=== PATIENT | male | born 1950 | race Caucasian/White ===

== ENCOUNTER 2019-08-17 13:46 | Emergency (ER) | payer MEDICARE ==
[~2019-08-17] VITALS: Ht 175.3 cm; Wt 85.0 kg
[2019-08-17 13:47] VITALS: BP 167/64
--- NOTE | 2019-08-17 13:59 | NUR ---
PT WITH HX OF ASTHMA, PT FOUND TO BE AT 80% ON RA. 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 PT NOW SATING 95% ON RA, PT STATES HE FEELS MUCH BETTER. PT DENIES COUGH AND FEVERS
[2019-08-17] MEDS ORDERED: SODIUM CHLORIDE FLUSH 10ML SYR IVF ONE (14:00)
[2019-08-17 14:13] LABS: BASOPHILS # (AUTO) 0.02 x10^3/uL (0-0.1); BASOPHILS % (AUTO) 0 % (0-1); EOSINOPHILS # (AUTO) 0.05 x10^3/uL (0-0.4); EOSINOPHILS % (AUTO) 1 % (1-7); LYMPHOCYTES # (AUTO) 1.29 x10^3/uL (1-3.4); LYMPHOCYTES % (AUTO) 14 % (22-44); MD NO; MEAN CORPUSCULAR HEMOGLOBIN 31.4 pg (27.5-34.5); MEAN CORPUSCULAR VOLUME 94.9 fL (81-97); MEAN PLATELET VOLUME 8.4 fL (7.4-10.4); MONOCYTES # (AUTO) 0.85 x10^3/uL (0.2-0.8); MONOCYTES % (AUTO) 9 % (2-9); NEUTROPHILS # (AUTO) 6.92 x10^3/uL (1.8-6.8); NEUTROPHILS % (AUTO) 76 % (42-75); PLATELET COUNT 200 x10^3/uL (130-400); RED BLOOD COUNT 4.45 x10^6/uL (4.38-5.82); RED CELL DISTRIBUTION WIDTH 13.4 % (9.4-14.8)
[2019-08-17 14:24] LABS: ALBUMIN 3.5 g/dL (3.4-5.0); ANION GAP 7 mmol/L (5-15); CALCIUM 9.4 mg/dL (8.5-10.1); CHLORIDE 106 mmol/L (98-107)
[2019-08-17 14:29] LABS: CREATININE 1.04 mg/dL (0.7-1.3); TROPONIN I < 0.015 ng/mL (0.000-0.045)
--- NOTE | 2019-08-17 15:17 | NUR ---
TASK RN: PT REPORTS IMPROVED S/S SINCE TX. DC EDUCATION PROVIDED, PT DEMONSTRATES UNDERSTANDING. PT AMBULATED STEADILY TO DC WITH RN
== END 2019-08-17 15:19 | disposition home or self-care (01) ==
LOC: ED 14:33
DX: J45.41 Moderate persistent asthma with (acute) exacerbation (principal)
CPT/HCPCS: 36415; 71045; 80048; 82040; 83605; 84145; 84484; 85025; 99284

== ENCOUNTER 2019-12-25 19:56 | Emergency (ER) | payer MEDICARE ==
[~2019-12-25] VITALS: Ht 175.3 cm; Wt 86.3 kg
[2019-12-25] MEDS ORDERED: METO25TA35 PO (20:27)
[2019-12-25] MEDS ORDERED: BUDE10.22 INH (20:27)
[2019-12-25] MEDS ORDERED: EZET1TAB65 PO (20:27)
[2019-12-25] MEDS ORDERED: ASPI-496 PO (20:27)
[2019-12-25] MEDS ORDERED: ALBUTEROL INH (20:27)
[2019-12-25] MEDS ORDERED: LISI-167 PO (20:27)
--- NOTE | 2019-12-25 20:27 | NUR ---
PA AT BEDSIDE TO ASSESS
[2019-12-25] MEDS ORDERED: ALBUTEROL/IPRATROPIUM 2.5MG/0.5MG, 3 ML NPPB ONE (20:30)
[2019-12-25] MEDS ORDERED: ALBUTEROL/IPRATROPIUM 2.5MG/0.5MG, 3 ML ONE (20:32)
[2019-12-25 20:54] LABS: BASOPHILS # (AUTO) 0.05 x10^3/uL (0-0.1); BASOPHILS % (AUTO) 1 % (0-1); EOSINOPHILS # (AUTO) 0.32 x10^3/uL (0-0.4); EOSINOPHILS % (AUTO) 7 % (1-7); LYMPHOCYTES # (AUTO) 1.02 x10^3/uL (1-3.4); LYMPHOCYTES % (AUTO) 20 % (22-44); MD NO; MEAN CORPUSCULAR HEMOGLOBIN 31.1 pg (27.5-34.5); MEAN CORPUSCULAR VOLUME 94.5 fL (81-97); MEAN PLATELET VOLUME 7.9 fL (7.4-10.4); MONOCYTES # (AUTO) 0.64 x10^3/uL (0.2-0.8); MONOCYTES % (AUTO) 13 % (2-9); NEUTROPHILS # (AUTO) 2.97 x10^3/uL (1.8-6.8); NEUTROPHILS % (AUTO) 59 % (42-75); PLATELET COUNT 204 x10^3/uL (130-400); RED BLOOD COUNT 4.63 x10^6/uL (4.38-5.82); RED CELL DISTRIBUTION WIDTH 13.1 % (9.4-14.8)
[2019-12-25 21:01] LABS: ALBUMIN 4.2 g/dL (3.4-5.0); ANION GAP 6 mmol/L (5-15); CALCIUM 9.6 mg/dL (8.5-10.1); CHLORIDE 112 mmol/L (98-107); CREATININE 0.94 mg/dL (0.7-1.3)
[2019-12-25 21:12] VITALS: BP 152/83
--- NOTE | 2019-12-25 21:12 | NUR ---
PT RESTING ON GURNEY TALKING WITH ON PHONE RA SAT IMPROVED TO 92-94% ABLE TO SPEAK IN FULL SENTENCES NADN, VITALS UPDATED. PT STS HE FEELS MUCH BETTER
[2019-12-25 21:41] LABS: TROPONIN I < 0.015 ng/mL (0.000-0.045)
== END 2019-12-25 22:32 | disposition home or self-care (01) ==
LOC: ED 22:00
DX: J45.41 Moderate persistent asthma with (acute) exacerbation (principal); R06.00 Dyspnea, unspecified; I10 Essential (primary) hypertension; Z87.891 Personal history of nicotine dependence
CPT/HCPCS: 36415; 71045; 80048; 82040; 84484; 85025; 93005; 94640; 99285; J7512

== ENCOUNTER → 2020-11-02 | Outpatient (CLI) | payer MEDICARE ==
[~2020-11-02] MED LIST: ALBUTEROL INH; ASPI-496 PO; BUDE10.22 INH; EZET-56 PO; LISI-167 PO; METO25TA35 PO
== END | disposition home or self-care (01) ==
LOC: CFH 07:46
PROVIDERS: ATTEND Nurse Practitioner Family
DX: Z12.2 Encounter for screening for malignant neoplasm of respiratory organs (principal); J43.2 Centrilobular emphysema; Z87.891 Personal history of nicotine dependence
CPT/HCPCS: 71271